=== PATIENT | female | born 1935 | race Caucasian/White ===

== ENCOUNTER → 2023-05-07 13:13 | Outpatient (REF) | payer MEDICARE, SELFPAY | LOC: HWRAD 13:13 | PROVIDERS: ATTENDING PHYSICIAN Internal Medicine Rheumatology; FAMILY PHYSICIAN Internal Medicine Geriatric Medicine | DX: M17.0 Bilateral primary osteoarthritis of knee (principal); M25.551 Pain in right hip | CPT/HCPCS: 73502; 73564 ==